=== PATIENT | female | born 1970 | race Caucasian/White ===

== ENCOUNTER 2018-12-26 00:36 | Emergency (ER) | payer OTHER ==
[~2018-12-26] VITALS: Ht 162.5 cm; Wt 95.3 kg
--- NOTE | ~2018-12-26 | EKG ---
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
--- NOTE | ~2018-12-26 | EKG ---
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
--- NOTE | ~2018-12-26 | EKG ---
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
[~2018-12-26 00:36] MED LIST: HYDROCODONE BIT1 T11 PO; LISINOPRIL HCTZ1 TA1 PO; MOTRIN600 MG PO
[2018-12-26 01:02] LABS: BASO # 0.1 10*3/uL (0.0-0.1); BASO % 0.5 % (0.0-1.0); EOS # 0.1 10*3/uL (0.0-0.4); EOS % 1.1 % (1.0-4.0); HEMATOCRIT 42.5 % (37.0-47.0); HEMOGLOBIN 13.8 g/dl (12.0-16.0); LYMPH # 2.5 10*3/uL (1.3-4.4); LYMPH % 22.3 % (27.0-41.0); MEAN CELL VOLUME 86.2 fl (81.0-99.0); MEAN CORPUSCULAR HGB CONC 32.5 g/dl (33.0-37.0); MEAN PLATELET VOLUME 10.7 fl (9.6-12.3); MONO # 1.4 10*3/uL (0.1-1.0); MONO % 12.3 % (3.0-9.0); NEUT # 7.2 10*3/uL (2.3-7.9); NEUT % 63.5 % (47.0-73.0); PLATELET COUNT AUTOMATED 305 10*3/uL (130-400); RED BLOOD COUNT 4.93 10*6/uL (4.10-5.10); RED CELL DISTRI WIDTH 13.2 % (0-14.5); WHITE BLOOD COUNT 11.4 10*3/uL (4.8-10.8)
[2018-12-26 01:12] LABS: ACT PARTIAL THROMBO TIME 25.3 SECONDS (20.8-31.5); INTERNATIONAL NORM RATIO 0.9 (2.0-3.5)
[2018-12-26 01:24] LABS: ALBUMIN 3.4 gm/dl (3.1-4.5); ALKALINE PHOSPHATASE 98 U/L (45-117); BUN 15 mg/dl (7-24); CHLORIDE 103 mmol/L (98-107); CREATININE 0.98 mg/dL (0.55-1.02); POTASSIUM 3.4 mmol/L (3.5-5.1); SGOT/AST 15 IU/L (3-35); SGPT/ALT 22 U/L (12-78); SODIUM 136 mmol/L (136-145); TOTAL PROTEIN 7.8 gm/dL (6.4-8.2)
[2018-12-26 01:25] LABS: TROPONIN I < 0.015 ng/ml (<0.045)
[2018-12-27] MEDS ORDERED: LISINOPRIL20 MG PO (15:14)
== END 2018-12-26 06:34 | disposition admitted as inpatient to this hospital (09) ==
LOC: ED 00:36
PROVIDERS: Emergency Medicine
DX: R07.89 Other chest pain (principal); R11.0 Nausea; R42 Dizziness and giddiness; R53.1 Weakness; R50.9 Fever, unspecified; F43.9 Reaction to severe stress, unspecified; M79.602 Pain in left arm; M79.601 Pain in right arm; R00.0 Tachycardia, unspecified; I10 Essential (primary) hypertension

== ENCOUNTER 2021-03-29 17:26 | Emergency (ER) | payer OTHER ==
[~2021-03-29] VITALS: Ht 162.5 cm; Wt 90.7 kg
[~2021-03-29 17:26] MED LIST changes: +LISINOPRIL20 MG PO
== END 2021-03-29 23:48 | disposition home or self-care (01) ==
LOC: ED 17:26
DX: R07.81 Pleurodynia (principal); R06.02 Shortness of breath; Z53.21 Procedure and treatment not carried out due to patient leaving prior to being seen by health care provider; W55.12XA Struck by horse, initial encounter; Y93.89 Activity, other specified; Y92.89 Other specified places as the place of occurrence of the external cause; Y99.8 Other external cause status